=== PATIENT | male | born 1995 | race Caucasian/White ===

== ENCOUNTER 2018-10-26 21:46 | Emergency (ER) | payer BC ==
[2018-10-26] MEDS ORDERED: Benzonatate 100 MG Cap PO ONE (22:24)
[2018-10-26] MEDS ORDERED: Albuterol/Ipratropium 3.0-0.5 MG/3 ML Neb Soln NEB ONE (22:24)
[2018-10-26] MEDS ORDERED: Ketorolac 30 MG/ML SDV IM ONE (22:37)
--- NOTE | 2018-10-26 22:54 | EDM.PDOC ---
ED HPI GENERAL MEDICAL PROBLEM - General Chief Complaint: Respiratory Problem Stated Complaint: COUGH CONGESTION Time Seen by Provider: 10/26/18 22:05 Source of Information: Reports: Patient History Limitations: Reports: No Limitations - History of Present Illness INITIAL COMMENTS - FREE TEXT/NARRATIVE: 23 y/o male presents to ER with cc cough, congestion and sore throat for the past 2 weeks. He reports the cough is productive green. He denies fever, chills , SOB. He states the cough is worse at night and he can't sleep. He does not have a PCP. Onset Date: 10/13/18 Duration: Getting Worse Location: Reports: Face Improves with: Reports: None Worsens with: Reports: Rest Associated Symptoms: Reports: Cough. Denies: Fever/Chills, Nausea/Vomiting, Rash, Shortness of Breath Treatments CESSPOOL CLEANER: Reports: Other Medication(s) Other Treatments CESSPOOL CLEANER: Nyquil Chest Pain Score (Numeric/FACES): 4 - Related Data Allergies Allergy/AdvReac Type Severity Reaction Status Date / Time No Known Allergies Allergy Verified 10/26/18 21:57 Home Meds: Home Meds Albuterol Sulfate [Albuterol Sulfate Hfa] 8.5 gm IH Q6HR PRN 7 Days #1 hfa.aer.[email or web address] 10/26/18 [Rx] Benzonatate [Tessalon Perle] 100 mg PO TID PRN 7 Days #20 capsule 10/26/18 [Rx] Doxycycline [Vibramycin] 100 mg PO BID 7 Days #14 cap 10/26/18 [Rx] predniSONE 40 mg PO WITHBREAKFAST 5 Days #5 tab 10/26/18 [Rx] Past Medical History - Past Health History Medical/Surgical History: Denies Medical/Surgical History Neurological History: Reports: Migraines Social & Family History - Tobacco Use Smoking Status *Q: Never Smoker - Caffeine Use Caffeine Use: Reports: Energy Drinks - Recreational Drug Use Recreational Drug Use: No ED ROS GENERAL - Review of Systems Review Of Systems: See Below Constitutional: Denies: Fever, Chills HEENT: Reports: No Symptoms, Nose Pain, Sinus Problem, Throat Pain Respiratory: Denies: Shortness of Breath Cardiovascular: Denies: Chest Pain Endocrine: Reports: Fatigue GI/Abdominal: Reports: No Symptoms : Reports: No Symptoms Musculoskeletal: Reports: No Symptoms. Denies: Neck Pain Skin: Reports: No Symptoms Neurological: Reports: No Symptoms Psychiatric: Reports: No Symptoms Hematologic/Lymphatic: Reports: No Symptoms ED EXAM, GENERAL - Physical Exam Exam: See Below Exam Limited By: No Limitations General Appearance: Alert, WD/WN, No Apparent Distress Ears: Normal External Exam, Normal Canal, Hearing Grossly Normal, Normal TMs Nose: Normal Mucosa, No Blood, Nasal Tenderness, Nasal Swelling, Nasal Drainage Throat/Mouth: Normal Inspection, Normal Lips, Normal Teeth, Normal Gums, Normal Voice, No Airway Compromise, Inflammation Head: Atraumatic, Normocephalic Neck: Normal Inspection, Supple, Non-Tender, Full Range of Motion Respiratory/Chest: No Respiratory Distress, Lungs Clear, Normal Breath Sounds, No Accessory Muscle Use, Chest Non-Tender Cardiovascular: Normal Peripheral Pulses, Regular Rate, Rhythm, No Edema, No Gallop, No JVD, No Murmur, No Rub Neurological: Alert, Oriented, CN II-XII Intact, Normal Cognition, Normal Gait Psychiatric: Normal Affect, Normal Mood Skin Exam: Warm, Dry, Intact, Normal Color, No Rash Lymphatic: No Adenopathy Course - Vital Signs Last Recorded V/S: Last Vital Signs Temp 97.9 F 10/26/18 21:53 Pulse 74 10/26/18 21:53 Resp 18 10/26/18 21:53 BP 122/72 10/26/18 21:53 Pulse Ox 98 10/26/18 22:33 - Orders/Labs/Meds Orders: Active Orders 24 hr Category Date Time Status RT Aerosol Therapy [RC] ASDIRECTED Care 10/26/18 22:25 Active Meds: Medications Discontinued Medications Generic Name Dose Route Start Last Admin Trade Name Dave PRN Reason Stop Dose Admin Albuterol/Ipratropium 3 ml 10/26/18 22:24 10/26/18 22:30 Duoneb 3.0-0.5 Mg/3 Ml NEB 10/26/18 22:25 3 ml ONETIME ONE Administration Benzonatate 200 mg 10/26/18 22:24 Tessalon Perles PO 10/26/18 22:25 ONETIME ONE Ketorolac Tromethamine 60 mg 10/26/18 22:37 Toradol IM 10/26/18 22:38 ONETIME ONE - Re-Assessments/Exams Free Text/Narrative Re-Assessment/Exam: 10/26/18 22:52 23 y/o male presents to ER with cc cough, congestion and sore throat for the past 2 weeks. I will discharge home with Doxycycline for outpatient antibiotic therapy. I will discharge home with Albuterol inhaler, Tessalon Pearls and short course of Prednisone. I will refer the patient to Dr. Wayne Reyna since he doesn't have a PCP. Instructed him to return to the ER for any new or acute worsening symptoms. He verbalized understanding and is comfortable with plan for discharge. He is stable at time of discharge. Departure - Departure Time of Disposition: 22:54 Disposition: Home, Self-Care 01 Condition: Good Clinical Impression: Cough Sinusitis Qualifiers: Sinusitis location: maxillary Chronicity: acute Recurrence: non-recurrent Qualified Code(s): J01.00 - Acute maxillary sinusitis, unspecified - Discharge Information *PRESCRIPTION DRUG MONITORING PROGRAM REVIEWED*: Not Applicable *COPY OF PRESCRIPTION DRUG MONITORING REPORT IN PATIENT NATALIE: Not Applicable Prescriptions: Albuterol Sulfate [Albuterol Sulfate Hfa] 8.5 gm IH Q6HR PRN 7 Days #1 hfa.aer.ad PRN Reason: Cough Benzonatate [Tessalon Perle] 100 mg PO TID PRN 7 Days #20 capsule PRN Reason: cough Doxycycline [Vibramycin] 100 mg PO BID 7 Days #14 cap predniSONE 40 mg PO WITHBREAKFAST 5 Days #5 tab Instructions: Upper Respiratory Infection, Adult, [id number], Sinusitis, Adult, [id number], Cough, Adult, [id number] Referrals: PCP,None [Primary Care Provider] - Alexy Hinojosa MD [Physician] - Additional Instructions: You have been diagnosis with cough and sinusitis. You have been given antibiotics, take them until they are all gone. Since you don't have a PCP, I gave you a referral for Dr. Garcia. Take the prednisone with food. Return to the ER for any new or acute worsening symptoms. - My Orders Last 24 Hours: My Active Orders 10/26/18 22:25 RT Aerosol Therapy [RC] ASDIRECTED - Assessment/Plan Last 24 Hours: My Active Orders 10/26/18 22:25 RT Aerosol Therapy [RC] ASDIRECTED
== END 2018-10-26 23:11 | disposition home or self-care (01) ==
LOC: JD.ED 21:46
DX: J01.00 Acute maxillary sinusitis, unspecified (principal)
CPT/HCPCS: 94640; 99283; A9270; J7620-GY